=== PATIENT | female | born 1985 | race Caucasian/White ===

== ENCOUNTER 2018-08-04 09:25 | Outpatient (CLI) | payer OTHER ==
--- NOTE | 2018-08-04 10:25 | ULT ---
Obstetrical ultrasound: 08/04/2018 COMPARISON: None HISTORY: 32-year-old female undergoing evaluation of anatomy TECHNIQUE: Multiplanar grayscale sonographic imaging of the gravid uterus obtained. FINDINGS: Cervical length is approximately 3.3 cm. Placenta located posteriorly, with no evidence for previa or abruption. Breech presentation noted. heart rate is 127 bpm. biometry: Biparietal diameter 3.8 cm, 17 weeks 5 days Head circumference 15.1 cm 18 weeks 1 day Abdominal circumference 12.7 cm 18 weeks 2 days Femur length 2.7 cm 18 weeks 3 days Average age based on ultrasound is 18 weeks 1 days. Estimated weight is 231 g +/- 34 g. This is at the 28th percentile. Evaluation of the anatomy is limited at this gestational age. The intracranial contents appear grossly unremarkable. The spine appears grossly unremark able. Four-chamber heart view is suboptimal secondary to gestational age. Evaluation of the stomach, urinary bladder, kidneys, and umbilical cord grossly unremarkable. T hree-vessel cord noted. nose and lips are not optimally assessed on this exam. Umbilical cord insertion site appears grossly unremarkable. Amniotic fluid index is relatively low, measuring approximately 9.1 cm. This may be a function of ges tational age as well. IMPRESSION: Single intrauterine gestation as detailed above. Average age based on ultrasound is 18 we eks 1 days. anatomy is not optimally assessed at this gestational age. Recommend follow-up examination in 6 weeks.
== END 2018-08-04 09:26 | disposition home or self-care (01) ==
LOC: BICULT 09:25
PROVIDERS: ATTEND Family Medicine
DX: Z34.82 Encounter for supervision of other normal pregnancy, second trimester (principal); Z3A.18 18 weeks gestation of pregnancy
CPT/HCPCS: 76805

== ENCOUNTER 2018-09-02 07:42 | Outpatient (CLI) | payer OTHER, MEDICAID ==
--- NOTE | 2018-09-02 08:24 | ULT ---
Complete obstetrical ultrasound INDICATION: Follow-up 4 chambered hearts and nose and lips TECHNIQUE: Grayscale, M-mode Doppler and Doppler images were obtained of the abdomen and pelvis to ev aluate the patient's known . COMPARISON: Prior surgical evaluation dated August 01, 2018 FINDINGS: Number of gestations: Single. Presentation: Cephalic. Placental location: Posterior and fundal Previa: No evidence for previa. Cervical length: 4.8 cm without evidence of funneling. INDIRA: 11.34 cm. heart rate: 160 bpm. Biparietal diameter: 5.67cm, 23 weeks 3 days, Not calculated.. Head circumference: 21.59 cm, 23 weeks 5 days, Not calculated. Abdominal circumference: 18.59 cm, 23 weeks 3 days, Not calculated. Femoral length: 4.00cm, 23 weeks 0 days, Not calculated. Estimated weight: 575 g +/- 84g 1 lb. 4 oz. +/- 3 ounces, 69th percentile SURVEY: head: Evaluated on prior exam. Cerebellum: Evaluated on prior exam. Cisterna magna: Evaluated on prior exam Lateral ventricles: Evaluated on prior exam 4 chamber heart: Normal appearing.. Stomach: Normal appearing. Kidneys: Normal appearing. Cord insertion: Normal appearing. Bladder: Normal appearing. Spine: Evaluated on prior exam Lips and nose: Normal appearing. Extremities: Evaluated on prior exam Three-vessel CORD: Normal appearing. The average gestational age by ultrasound is 22 weeks 3 dayswith estimated due date of December 27 19. The estimated dates by clinical data is 22 weeks 5 dayswith estimated due date of January 01, 2019. IMPRESSION: 1. Single live intrauterine gestation with size and dates as above.
== END 2018-09-02 07:43 | disposition home or self-care (01) ==
LOC: BICULT 07:42
PROVIDERS: ATTEND Family Medicine
DX: Z34.82 Encounter for supervision of other normal pregnancy, second trimester (principal); Z3A.22 22 weeks gestation of pregnancy
CPT/HCPCS: 76816

== ENCOUNTER 2018-12-25 05:30 | Inpatient (IN) | payer OTHER ==
[2018-12-25] MEDS ORDERED: NS w/ Oxytocin 10 units 500 ML ONE (07:39)
[2018-12-25] MEDS ORDERED: Promethazine HCl 25 MG/ML VIAL IM PRN (07:47)
[2018-12-25] MEDS ORDERED: Acetaminophen 500 MG TAB PO PRN (07:47)
[2018-12-25] MEDS ORDERED: hydrALAZINE 20 MG/ML VIAL SLOW IVP PRN ×2 (07:47→13:31)
[2018-12-25] MEDS ORDERED: Acetaminophen/Codeine 30-300mg Tablet PO PRN ×2 (07:47→13:31)
[2018-12-25] MEDS ORDERED: Ondansetron PF 4 MG/2 ML Vial IVP PRN ×2 (07:47→13:31)
[2018-12-25] MEDS ORDERED: NS / Oxytocin 40 units/1000ml 1,000 ML IV PRN (07:47)
[2018-12-25] MEDS ORDERED: Ibuprofen 800 MG TAB PO PRN (07:47)
[2018-12-25] MEDS ORDERED: HYDROcodone/Acetaminophen 5/325 mg Tablet PO PRN ×2 (07:47→13:31)
[2018-12-25] MEDS ORDERED: Lidocaine 1% (PF) 30 ML VIAL SC PRN (07:47)
[2018-12-25] MEDS ORDERED: Lactated Ringer's 1,000 ML IV SCH (07:47)
[2018-12-25] MEDS ORDERED: Butorphanol Tartrate 1 MG/ML VIAL SLOW IVP PRN (07:47)
[2018-12-25] MEDS ORDERED: NS w/ Oxytocin 10 units 500 ML IV SCH ×2 (07:47)
[2018-12-25] MEDS ORDERED: Misoprostol 200 MCG TAB PR PRN (07:47)
[2018-12-25 07:56] VITALS: BMI 32.3
[2018-12-25 08:18] LABS: Hemoglobin 11.8 g/dL (12.0-16.0); Mean Corpuscular HGB CONC 33.1 g/dL (32.0-36.0); Mean Corpuscular Hemoglobin 25.3 pg (27.0-31.0); Mean Corpuscular Volume 76.4 fL (78.0-98.0); Mean Platelet Volume 8.3 fL (7.4-10.4); Platelet Count 213 thou/uL (130-400); RBC Distribution Width 14.9 % (11.5-14.5); Red Blood Cell (RBC) Count 4.65 mill/uL (4.20-5.40)
[2018-12-25 08:34] LABS: ALT (SGPT) Less than 7 U/L (8-55); AST (SGOT) 9 U/L (5-34); Albumin 3.4 g/dL (3.5-5.0); Alkaline Phosphatase 106 U/L (40-110); Anion Gap 15 mmol/L (10-20); BUN (Urea Nitrogen) 8 mg/dL (7.0-18.7); Bilirubin, Total 0.3 mg/dL (0.2-1.2); Calc. Creatinine Clearance 176 mL/min (70-130); Calcium 8.7 mg/dL (7.8-10.44); Carbon Dioxide 21 mmol/L (22-29); Chloride 104 mmol/L (98-107); Estimated GFR-MDRD Greater than 90; Globulin 3.1 g/dL (2.4-3.5); Glucose 126 mg/dL (70-105); Protein, Total 6.5 g/dL (6.0-8.3); Sodium 136 mmol/L (136-145)
[2018-12-25 08:53] LABS: HBSAg Index 0.23 S/CO (0-0.99); Hep B Surf Ag Non-Reactive S/CO (NonReactive)
[2018-12-25 08:57] LABS: Syphilis Antibody Nonreactive (Nonreactive); Syphilis Antibody Index 0.07 S/CO (<1.00 Non-Reactive)
[2018-12-25] MEDS ORDERED: Bisacodyl 10 MG SUPP PR PRN (13:31)
[2018-12-25] MEDS ORDERED: diphenhydrAMINE 25 MG CAP PO PRN (13:31)
[2018-12-25] MEDS ORDERED: traMADol HCl 50 MG TAB PO PRN (13:31)
[2018-12-25] MEDS ORDERED: Lanolin Ointment 7 GM TUBE TOP PRN (13:31)
[2018-12-25] MEDS ORDERED: Preparation H Ointment 28 GM TUBE PR PRN (13:31)
[2018-12-25] MEDS ORDERED: Milk Of Magnesia 30 ML UDCUP PO PRN (13:31)
[2018-12-25] MEDS ORDERED: Benzocaine-Menthol 82.5 ML CAN TOP PRN (13:31)
[2018-12-25] MEDS: NS / Oxytocin 40 units/1000ml 1,000 ML IV SCH ×2 (13:49→14:26)
[2018-12-25] MEDS: Ibuprofen 800 MG TAB PO SCH ×2 (13:53→21:56)
[2018-12-25] MEDS: Ferrous Sulfate 325 MG TAB PO SCH (17:46)
[2018-12-25] MEDS: Docusate Calcium (SURFAK) 240 MG CAP PO SCH (21:56)
[2018-12-26] MEDS ORDERED: Sodium Chloride 0.9% 10 ML ONE (00:31)
[2018-12-26] MEDS: Ibuprofen 800 MG TAB PO SCH ×3 (05:47→21:23)
[2018-12-26] MEDS: Docusate Calcium (SURFAK) 240 MG CAP PO SCH ×2 (07:50→21:23)
[2018-12-26] MEDS: Prenatal Vitamin 1 TAB PO SCH (07:50)
[2018-12-26] MEDS: Ferrous Sulfate 325 MG TAB PO SCH ×2 (07:51→17:02)
[2018-12-26] MEDS: metFORMIN XR 500 MG TAB PO SCH (07:51)
[2018-12-27] MEDS: Ibuprofen 800 MG TAB PO SCH ×2 (05:13→13:46)
[2018-12-27] MEDS: Ferrous Sulfate 325 MG TAB PO SCH (07:34)
[2018-12-27] MEDS: Docusate Calcium (SURFAK) 240 MG CAP PO SCH (09:10)
[2018-12-27] MEDS: Prenatal Vitamin 1 TAB PO SCH (09:10)
[2018-12-27] MEDS: metFORMIN XR 500 MG TAB PO SCH (09:10)
[2018-12-27 10:34] VITALS: BP 111/70; TEMP 97.6
--- NOTE | 2018-12-29 06:58 | PQF ---
[employer] Jamal Samantha CAMELIA HOYT JR, MD [id number] CLINICAL DOCUMENTATION CLARIFICATION FORM: POST DISCHARGE Addendum to original discharge summary date: ____ Late entry note date: __ DATE: 12/29/2018 ATTN:CAMELIA HOYT JR, MD Please exercise your independent, professional judgment in responding to the clarification form. Clinical indicators are provided on the bottom of this form for your review Please check appropriate box(s) to clarify if the following diagnosis has been ruled in or ruled out: Atrial Fibrillation [ ] Ruled in diagnosis [ ] Continue to treat [ ] Resolved [ ] Ruled out diagnosis [ ] Cannot rule out diagnosis [ ] Other diagnosis [ ] Unable to determine For continuity of documentation, please document condition throughout progress notes and discharge summary. Thank You. CLINICAL INDICATORS - SIGNS / SYMPTOMS / LABS - Physical Exam : BP:normal, T:Afib-Labor and delivery HP note, 12/25 - Afib-BP nl- Progress note 12/26 RISK FACTORS -AoDM-Labor and delivery HP note, 11/27 -39wks IUP-Labor and delivery HP note, 11/27 TREATMENTS -BP check-Vital signs, (This form is maintained as a part of the permanent medical record) 2014 [employer]. All Rights Reserved [employer] [not provided] [not provided] [email or web address]
== END 2018-12-27 14:30 | disposition home or self-care (01) | DRG 806 ==
LOC: L&D 06:03 → 3SW 16:11
PROVIDERS: ADMIT Family Medicine; ATTEND Family Medicine
PROC: 10E0XZZ Delivery of Products of Conception, External Approach (ICD-10-PCS; principal; 2018-12-25)
PROC: 3E033VJ Introduction of Other Hormone into Peripheral Vein, Percutaneous Approach (ICD-10-PCS; 2018-12-25)
DX: O24.12 Pre-existing type 2 diabetes mellitus, in childbirth (principal); O72.1 Other immediate postpartum hemorrhage; Z37.0 Single live birth; E11.8 Type 2 diabetes mellitus with unspecified complications; Z3A.39 39 weeks gestation of pregnancy
CPT/HCPCS: 36415; 80053; 85027; 86780; 86850; 86900; 86901; 87340; J2590